=== PATIENT | female | born 1960 | race Hispanic/Latino ===

== ENCOUNTER 2024-12-14 10:14 | Emergency (ER) | payer OTHER ==
[~2024-12-14] VITALS: Ht 162.6 cm; Wt 58.1 kg
[2024-12-14 10:44] LABS: NUCLEATED RED BLOOD CELLS 0.0 % (0.0-0.19); PLATELET COUNT (AUTO) 342.0 K/uL (130-400); RED BLOOD CELL COUNT(AUTO) 4.31 MIL/uL (4.00-5.50); RED CELL DISTRIBUTION WIDTH 14.8 % (11.0-15.5); WHITE BLOOD COUNT (AUTO) 9.3 K/uL (4.8-10.8)
[2024-12-14 10:57] LABS: CREATINE KINASE, TOTAL 75.0 U/L (21-232); CREATININE 1.1 mg/dL (0.5-1.0); GLOMERULAR FILTR. RATE CALC 56.0 mL/min (>90); GLUCOSE,RANDOM 154.0 mg/dL (70-105); UREA NITROGEN, BLOOD 18.0 mg/dL (7-18)
[2024-12-14 11:07] LABS: SODIUM SERUM 132.0 mmol/L (136-145)
--- NOTE | 2024-12-14 11:08 | HMCIMG ---
EXAM: Non-contrast CT examination of the Brain CLINICAL HISTORY: Headache. TECHNIQUE: Thin collimated axial CT images of the brain were obtained, with sagittal and coronal reformatted images also submitted. CT scan done according to ALARA (As Low as Reasonably Achievable). CONTRAST USED: None. COMPARISON: None provided. FINDINGS: No acute intracranial abnormality is present. No acute cortical infarction, hemorrhage, mass, or mass effect. Ill-defined hypodensities in the bilateral cerebral white matter suggesting moderate chronic ischemic changes secondary to small vessel disease. No hydrocephalus or abnormal extra-axial fluid collections. The posterior fossa is unremarkable. The skull base and calvarium are intact. The included portions of the paranasal sinuses and mastoid air cells are clear. IMPRESSION: No acute intracranial abnormality is present. Moderate chronic ischemic changes secondary to small vessel disease. /[place]
--- NOTE | 2024-12-14 11:21 | ERN ---
General Chief Complaint: Lower Extremity Pain/Injury Stated Complaint: LT LEG WEAKNESS Time Seen by MD: 10:27 Source: patient History of Present Illness Initial Comments PATIENT IS A 64-YEAR-OLD FEMALE COMING IN COMPLAINING OF LOWER LEFT EXTREMITY WEAKNESS. PER PATIENT THIS HAS BEEN ONGOING FOR TWO DAYS. STATES THAT WHEN SHE WAS TRYING TO AMBULATES SHE HAD ISSUES. Allergies: Coded Allergies: No Known Allergies (Unverified Allergy, Unknown, 12/14/24) Past Medical History Past Medical History: No Pertinent History Past Surgical History: None ROS Dictation CONSTITUTIONAL: NO CHILLS, NO FEVER, NO WEAKNESS, NO DIAPHORESIS, NO MALAISE. HEAD/FACE: NO SIGNS OF TRAUMA. EENT: NO EYE PAIN, NO BLURRED VISION, NO TEARING, NO DOUBLE VISION, NO EAR PAIN, NO EAR DISCHARGE, NO NOSE PAIN, NO NASAL CONGESTION, NO THROAT PAIN, NO THROAT SWELLING, NO MOUTH PAIN. RESPIRATORY: NO COUGH, NO ORTHOPNEA, NO SOB, NO STRIDOR, NO WHEEZING. CARDIOVASCULAR: NO CHEST PAIN, NO EDEMA, NO PALPITATIONS, NO SYNCOPE. GASTROINTESTINAL/ABDOMINAL: NO ABDOMINAL PAIN, NO CONSTIPATION, NO DIARRHEA, NO NAUSEA, NO VOMITING. GENITOURINARY: NO ABNORMAL DISCHARGE, NO DYSURIA, NO FREQUENT URINATION, NO HEMATURIA. NO COMPLAINTS OF PAIN IN THE GENITALS. MUSCULOSKELETAL: NO BACK PAIN, NO GOUT, NO JOINT PAIN, NO JOINT SWELLING, NO MUSCLE PAIN, NO MUSCLE STIFFNESS, NO NECK PAIN. INTEGUMENTARY: NO CHANGE IN COLOR, NO CHANGE IN HAIR/NAILS, NO DRYNESS, NO LESION, NO LUMPS, NO RASH. NEUROLOGICAL/PSYCH: NO ANXIETY, NOT DEPRESSED, NO EMOTIONAL PROBLEM, NO HEADACHE, NO NUMBNESS, NO PRE-EXISTING DEFICIT, NO HISTORY OF SEIZURES, NO TREMORS, NO WEAKNESS. HEMATOLOGIC/LYMPHATIC: NOT ANEMIC, NO HISTORY OF BLOOD CLOTS, NO APPARENT BLEEDING, NO BRUISING, GLANDS NOT SWOLLEN. ALL SYSTEMS NEGATIVE, EXCEPT NOTED. Physical Exam Physical Exam Dictation VITAL SIGNS: REVIEWED. GENERAL APPEARANCE: ALERT, ORIENTED X3, NO ACUTE DISTRESS, OBESE. HEAD AND FACE: NON-TRAUMATIC. EYES: PERRL, PINK CONJUNCTIVAS, EYELID NO TRAUMA, ANTERIOR CHAMBER CLEAR. EARS: PINNAS INTACT AND NO SIGNS OF TRAUMA OR ERYTHEMA. EAR CANALS CLEAR AND NO DISCHARGE. TMS NO ERYTHEMA. NOSE: NO DISCHARGE, NO BLEEDING. OROPHARYNX: MOUTH NORMAL, TEETH NO CARIES, TONGUE PINK. PHARYNX CLEAR, NO ERYTHEMA. TONSILS NO EXUDATES, NO ABSCESSES NOTED. MUCOUS MEMBRANE MOIST. NECK: SUPPLE, NON-TENDER, NO THYROMEGALY, NO MASSES, NO JVD, NO BRUITS. BREAST: DEFERRED. CHEST: NO TENDERNESS, NO CREPITUS, NO PARADOXICAL MOVEMENT, NO RETRACTIONS. LUNGS: CLEAR, WELL-VENTILATED, SYMMETRIC, NO RALES, NO WHEEZING, NO RHONCHI, NO STRIDOR, GOOD BREATH SOUNDS BILATERALLY. HEART: REGULAR RATE, REGULAR RHYTHM, NO MURMUR, NO GALLOPS. VASCULAR: NO PERIPHERAL EDEMA. ABDOMEN: SOFT, POSITIVE BOWEL SOUNDS, NONDISTENDED, NO GUARDING, NONTENDER, NO REBOUND, NO MASSES NO HEPATOMEGALY, NO SPLENOMEGALY, NO JUNIOR'S SIGN, NO HERNIAS. RECTAL: DEFERRED. GENITAL: DEFERRED. NEUROLOGICAL: NORMAL SPEECH, GROSS MOTOR FUNCTION INTACT, GROSS SENSORY FUNCTION INTACT. MUSCULOSKELETAL: NECK NONTENDER, FULL RANGE OF MOTION, BACK NONTENDER, FULL RANGE OF MOTION. EXTREMITIES: NONTENDER, FULL RANGE OF MOTION. SKIN: COLOR PINK, DRY, NO TURGOR, NO RASH, NO LACERATIONS, NO ABRASIONS, NO CONTUSIONS. LYMPHATICS: DEFERRED. Results Laboratory and Microbiology Lab and Micro Result Laboratory Tests Test 12/14/24 10:40 White Blood Count 9.3 K/uL (4.8-10.8) Red Blood Count 4.31 MIL/uL (4.00-5.50) Hemoglobin 12.2 g/dL (12.0-16.0) Hematocrit 38.8 % (36-48) Mean Corpuscular Volume 90.0 fL (79-99) Mean Corpuscular Hemoglobin 28.3 pg (27.0-33.0) Mean Corpuscular Hemoglobin Concent 31.4 g/dL (32.0-36.0) L Red Cell Distribution Width 14.8 % (11.0-15.5) Platelet Count 342 K/uL (130-400) Mean Platelet Volume 9.6 fL (7.5-10.5) Nucleated Red Blood Cells 0.0 % (0.0-0.19) Sodium Level 132 mmol/L (136-145) L Potassium Level 3.7 mmol/L (3.5-5.1) Chloride Level 108 mmol/L (101-111) Carbon Dioxide Level 25 mmol/L (21-32) Blood Urea Nitrogen 18 mg/dL (7-18) Creatinine 1.1 mg/dL (0.5-1.0) H Glomerular Filtration Rate Calc 56 mL/min (>90) Random Glucose 154 mg/dL (70-105) H Total Calcium 9.3 mg/dL (8.5-10.1) Total Creatine Kinase 75 U/L (21-232) Labs Reviewed?: Yes EKG/XRAY/US/CT/MRI CT Scan Comment [facility] [address] [place] [address] IMAGING REPORT Signed PATIENT: RADHA BAILEY MR#: [id number] : 1960 SEX: F AGE: 64 LOCATION: [facility] ORDER 1028 STATUS: REG REPORT#: [id number] SERVICE 1027 REASON: LEFT LOWER EXTREMITY ORDERING PHYSICIAN: KAI PITTMAN MD PROCEDURE: HEAD WO - CT HEAD/BRAIN W/O CONTRAST EXAM: Non-contrast CT examination of the Brain CLINICAL HISTORY: Headache. TECHNIQUE: Thin collimated axial CT images of the brain were obtained, with sagittal and coronal reformatted images also submitted. CT scan done according to ALARA (As Low as Reasonably Achievable). CONTRAST USED: None. COMPARISON: None provided. FINDINGS: No acute intracranial abnormality is present. No acute cortical infarction, hemorrhage, mass, or mass effect. Ill-defined hypodensities in the bilateral cerebral white matter suggesting moderate chronic ischemic changes secondary to small vessel disease. No hydrocephalus or abnormal extra-axial fluid collections. The posterior fossa is unremarkable. The skull base and calvarium are intact. The included portions of the paranasal sinuses and mastoid air cells are clear. IMPRESSION: No acute intracranial abnormality is present. Moderate chronic ischemic changes secondary to small vessel disease. /[place] DICTATED BY: BEST PALMA Jr., MD DATE: 12/14/241206 ELECTRONICALLY SIGNED BY: BEST PALMA Jr., MD DATE: 08/12/25 1207 MDM MDM: DIFFERENTIAL DIAGNOSIS: CVA, TIA RATIONALE: TESTS CONSIDERED AND ORDERED SECONDARY TO SHARED DECISION MAKING INCLUDE: PREVIOUS OUTSIDE RECORDS REVIEWED: OLD ER VISITS. RISK OF COMPLICATION AND/OR MORBIDITY OR MORTALITY OF PATIENT MANAGEMENT: NONE MEDICATIONS-PER MEDICATION RECONCILIATION NEED FOR HOSPITALIZATION: PATIENT DOES MEET CRITERIA FOR HOSPITALIZATION. NEED FOR EMERGENCY MAJOR/MINOR SURGERY: NO THERE ARE NO SOCIAL CONCERNS WITH THIS PATIENT. PRESCRIPTION DRUG MANAGEMENT PRESCRIPTIONS WILL INCLUDE SYMPTOMATIC CARE PATIENT'S PRIOR EXTERNAL MEDICAL RECORDS FROM OTHER ER VISITS WERE REVIEWED BY ME INDICATED. PRIOR TESTING AND RESULTS FROM PREVIOUS VISITS WERE REVIEWED. PRIOR TESTS WERE TAKEN INTO ACCOUNT WITH MEDICAL DECISION MAKING AND RESOURCE UTILIZATION, INDEPENDENT HISTORIAN/HISTORIANS WERE USED TO OBTAIN COMPLETE MEDICAL HISTORY. I INDEPENDENTLY INTERPRETED THE TEST THAT WERE PERFORMED, RESULTS WERE REVIEWED BY ME AND CONSIDERED FINDINGS ON RADIOLOGY IF ORDERED. MEDICAL MANAGEMENT AND EXAMINATION INTERPRETATION DISCUSSIONS WERE HAD BY ME WITH OTHER QUALIFIED HEALTHCARE PROFESSIONALS INDICATED FOR THE PATIENT'S CARE. PATIENT WILL BE TRANSFERRED TO [facility] UNDER THE CARE OF DR. MEIER ED Course Orders Procedure Category Date Status Time Cbc Without LAB 12/14/24 Complete Differential 10:27 Basic Metabolic Panel LAB 12/14/24 Complete 10:27 Ct Head/Brain W/O CT 12/14/24 Resulted Contrast 10:27 Creatine Kinase, Total LAB 12/14/24 Complete 10:27 Clonidine Hcl 0.1 Mg PHA 12/14/24 Complete Tablet (Catapres 0. 11:30 Current Medications Medications (Trade) Dose Ordered Sig/Kassie Route PRN Reason Start Time Stop Time Status Last Admin Dose Admin Clonidine HCl (CATApres 0.1 mg TAB) 0.1 mg ONCE ONCE PO 12/14/24 11:30 12/14/24 11:31 DC 12/14/24 11:26 Vital Signs Date Time Temp Pulse Resp B/P (MAP) Pulse Ox O2 Delivery O2 Flow Rate FiO2 12/14/24 11:26 89 184/88 12/14/24 10:48 87 18 194/91 99 Room Air* 0 21 12/14/24 10:16 98.8 109 16 178/101 98 Room Air 0 DX & DISP Disposition: Transfer Decision to Admit Time: 13:06 Departure Impression: Primary Impression: CVA (cerebral vascular accident) Additional Impression: TIA (transient ischemic attack) Condition: Stable Referrals: SELF,REFERRAL (PCP) KAI PITTMAN MD Dec 14, 2024 11:21
--- NOTE | 2024-12-14 12:25 | NUR ---
tele neuro completed at this time per victorino gold possible mri needed to determine cause of left leg weakness over the last 24 hrs
--- NOTE | 2024-12-14 12:42 | NUR ---
SPOKE TO [facility] IN REGARDS TO DR. PITTMAN NEURO TRANSFER REQUEST.
--- NOTE | 2024-12-14 13:46 | CONS ---
CONSULT NOTE: [address] Neuro Note # Demographics Consult Type: General Neurology Patient Location: Emergency Room First Name: RADHA Last Name: LYNN Date of : 1960 Age: 64 Gender: Female Facility: [facility] Time of Initial Page (Central Time): 12/14/2024 11:42 First Contact with Site (Central Time): 12/14/2024 11:42 # HPI Chief Complaint: - weakness (focal) History: 64 y/o woman with left leg weakness and numbness suddenly since yesterday. Patient reports symptoms started suddenly yesterday. Symptoms the same since onset. No similar symptoms previously. No provoking factor. No thinners. No associated pain. ED provider noting bilateral leg hyper-reflexia # Scores Time of exam and NIHSS (Central Time): 12/14/2024 12:20 Level of Consciousness 1a: [0] = Alert; keenly responsive LOC Questions 1b: [0] = Answers both questions correctly LOC Commands 1c: [0] = Performs both tasks correctly Best Gaze 2: [0] = Normal Visual 3: [0] = No visual loss Facial Palsy 4: [1] = Minor paralysis Motor Arm Left 5a: [0] = No drift Motor Arm Right 5b: [0] = No drift Motor Leg Left 6a: [0] = No drift Motor Leg Right 6b: [0] = No drift Limb Ataxia 7: [0] = Absent Sensory 8: [1] = [id number] sensory loss Best Language 9: [0] = No aphasia Dysarthria 10: [0] = Normal Extinction and Inattention 11: [0] = No abnormality NIHSS Total: 2 # Data Head CT: - no bleed - per radiologist read # Assessment Impression: - Weakness Possible stroke, though cervical spine disease also possible. # Plan Thrombolytic/Intervention: NOT IV Thrombolysis or IA Intervention candidate Thrombolytic Exclusion: > 4.5 hours Intraarterial Exclusion: - clinical exam not consistent with presence of large vessel occlusion (LVO), can reconsider if LVO found on vascular imaging Target Blood Pressure: SBP < 220 Labs: - hemoglobin A1c - lipid panel Imaging: (urgency: STAT): CTA to be done at receiving facility Imaging: (urgency: routine): - MRI Brain without contrast - MRI C spine Diagnostic Test: - echo with bubble study Therapy/Evaluation: - PT/OT evaluation - speech/swallow consultation Medication: - aspirin 81 mg daily - start statin with goal of LDL < 70 Other: - If patient has any neurological deterioration please call me back immediately - LDL < 70 - permissive hypertension - telemetry monitoring - I have discussed my recommendations with the referring provider Additional Recommendations: Patient transferring for higher level of care # Logistics Attestation of consult completion: The patient is located at: [facility]. Facility staff participated in the visit. I performed this telemedicine visit from my offsite office utilizing interactive 2 way audio and visual telecommunication technology at the request of the onsite emergency room provider. Total time spent in telemedicine encounter: I spent 20 minutes reviewing clinical data and/or imaging, obtaining history, examining the patient, communicating with the onsite care team, and in preparation of this report. # Demographics First Name: RADHA Last Name: BAILEY Facility: [facility] RENETTA ODONNELL MD Dec 14, 2024 13:45
[2024-12-14 15:09] VITALS: BP 169/80; PULSE 79; RESP 18; TEMP 98.3; O2SAT 99
--- NOTE | 2024-12-14 15:20 | NUR ---
ems arrived as report attempted to yony gifford spoke with taina and was advised nurse currently rounding with md and unavailable for the next 10-20 min director Wade notified of delay and will attempt to call report again
== END 2024-12-14 15:42 | disposition short-term general hospital (02) ==
LOC: EDH 10:14
DX: I63.9 Cerebral infarction, unspecified (principal); G45.9 Transient cerebral ischemic attack, unspecified; Z79.82 Long term (current) use of aspirin
CPT/HCPCS: 36415; 70450; 80048; 82550; 85027; 99285

== ENCOUNTER 2025-03-22 10:48 | Day surgery (SDC) | payer OTHER ==
[2025-03-22] VITALS (11 sets, daily range): BP systolic 106–133; BP diastolic 50–77; PULSE 74–84; RESP 15–18; TEMP 97.1–98.1
[~2025-03-22] VITALS: Ht 162.6 cm; Wt 59.0 kg
[2025-03-22] MEDS ORDERED: ATOR40TA69 PO (11:18)
[2025-03-22] MEDS ORDERED: AMLO-257 PO (11:18)
[2025-03-22] MEDS ORDERED: ASPI-1197 PO (11:18)
[2025-03-22] MEDS ORDERED: FAMO20TA8 PO (11:18)
[2025-03-22] MEDS ORDERED: LOSA50TA64 PO (11:18)
[2025-03-22] MEDS ORDERED: FOLI0.8C PO (11:18)
[2025-03-22] MEDS ORDERED: PANT40TA54 PO (11:18)
[2025-03-22] MEDS: 0.9%NACL 1000ML 1,000 ML IV ONE (11:54)
[2025-03-22] MEDS ORDERED: LIDOCAINE PF 100MG/5ML (2%) SYRINGE 5ML ONE (12:47)
== END 2025-03-22 14:20 | disposition home or self-care (01) ==
LOC: ENDO 10:48 → DAH 10:48 → ENDO 14:20
PROVIDERS: ATTEND Internal Medicine Gastroenterology
DX: K92.1 Melena (principal); D12.2 Benign neoplasm of ascending colon; K62.1 Rectal polyp; K64.0 First degree hemorrhoids; D62 Acute posthemorrhagic anemia; I10 Essential (primary) hypertension; E78.5 Hyperlipidemia, unspecified; Z79.02 Long term (current) use of antithrombotics/antiplatelets; Z86.16 Personal history of COVID-19; Z87.891 Personal history of nicotine dependence; Z82.49 Family history of ischemic heart disease and other diseases of the circulatory system; Z98.890 Other specified postprocedural states
CPT/HCPCS: 88305; 45385; J7030; J2003; J2704; J3490